=== PATIENT | male | born 1965 | race Caucasian/White ===

== ENCOUNTER 2024-06-26 07:06 | Day surgery (SDC) | payer MEDICAID ==
[~2024-06-26 07:06] MED LIST: Midazolam 1 MG/ML 2 ML SDV ONE; fentaNYL 100 MCG/2 ML SDV ONE
[2024-06-26] MEDS ORDERED: Midazolam 1 MG/ML 2 ML SDV IV ONE (07:07)
[2024-06-26] MEDS ORDERED: fentaNYL 100 MCG/2 ML SDV IV ONE (07:07)
[2024-06-26] MEDS: Dextrose 5%-0.45% NaCl 1,000 ML IV SCH (07:23)
[2024-06-26] MEDS: fentaNYL 100 MCG/2 ML SDV IV ONE ×2 (07:29→07:30)
[2024-06-26] MEDS: Midazolam 1 MG/ML 2 ML SDV IV ONE ×4 (07:30→07:35)
[2024-06-26 08:40] VITALS: BP 107/62; PULSE 71
== END 2024-06-26 09:00 | disposition home or self-care (01) ==
LOC: DL.ENDO 07:06
PROVIDERS: ATTEND Internal Medicine Gastroenterology
DX: Z12.11 Encounter for screening for malignant neoplasm of colon (principal); K57.30 Diverticulosis of large intestine without perforation or abscess without bleeding
CPT/HCPCS: J2250; J3010; J7799